=== PATIENT | female | born 1955 | race Caucasian/White ===

== ENCOUNTER 2017-07-30 13:08 | Outpatient (CLI) | payer OTHER ==
--- NOTE | 2017-08-03 09:16 | DEXA Report ---
DEXA SCAN: 07/30/2017 CLINICAL INDICATION: Postmenopausal. TECHNIQUE: Dual energy x-ray absorptiometry (DXA) was performed on a [employer] system. Regions measured are the AP spine, femoral neck, and, if needed, forearm. COMPARISON: None. In accordance with the International Society for Clinical Densitometry (ISCD) guidelines, data from previous exams may be reanalyzed using current recommendations and techniques. This is done to allow a more accurate basis for comparison with the current study. FINDINGS The data for the lumbar spine is as follows: REGION BMD (g/cm/cm) T-SCORE Z-SCORE L1 0.779 -2.9 -1.7 L2 0.905 -2.5 -1.2 L3 1.001 -1.7 -0.4 L4 1.008 -1.6 -0.4 TOTAL 0.932 -2.1 -0.8 NOTE: All evaluable vertebrae are used for classification. The data for the hip is as follows: REGION BMD (g/cm/cm) T-SCORE Z-SCORE Neck 0.726 -2.2 -1.0 TOTAL 0.795 -1.7 -0.7 NOTE: The femoral neck or total proximal femur, whichever is lowest, is used for classification. IMPRESSION THE WHO CLASSIFICATION BASED ON THE INTERNATIONAL REFERENCE STANDARD IS OSTEOPENIA. THE FRACTURE RISK IS INCREASED. RECOMMENDATION: Patients with diagnosis of osteoporosis or osteopenia should have regular bone mineral density assessment. For those eligible for Medicare, routine testing is allowed once every 2 years. Testing frequency can be increased for patients who have rapidly progressing disease or for those who are receiving medical therapy to restore bone mass. COMMENT World Health Organization (WHO) definitions for osteoporosis and osteopenia: NORMAL BMD: T-score at 1.0 or higher, fracture risk is low. OSTEOPENIA BMD: T-score between 1.0 and -2.5, fracture risk is increased. OSTEOPOROSIS BMD: T-score at 2.5 or lower, fracture risk high. National Osteoporosis Foundation recommends: 1. Obtain adequate dietary calcium (at least 1200 mg per day) and vitamin D (400 -800 international units per day). 2. Participate, as appropriate, in regular weightbearing and muscle- strengthening exercise. 3. Avoid tobacco use and reduce alcohol and caffeine intake. 4. For more detailed information see the website at www.NOF.org. TD: 07/30/2017 15:08 CHRISTIANO
== END 2017-07-30 13:09 | disposition home or self-care (01) ==
LOC: DI 13:08
PROVIDERS: ATTEND Specialist
DX: Z13.820 Encounter for screening for osteoporosis (principal); M85.89 Other specified disorders of bone density and structure, multiple sites; Z78.0 Asymptomatic menopausal state
CPT/HCPCS: 77080

== ENCOUNTER 2017-09-09 09:30 | Outpatient (CLI) | payer OTHER ==
--- NOTE | 2017-09-09 12:45 | XRAY Report ---
COMPLETE CERVICAL SPINE: 09/09/2017 CLINICAL INDICATION: Pain. FINDINGS: AP, lateral neutral, lateral flexion, lateral extension, oblique, odontoid views of the cervical spine were obtained. There is mild degenerative disk and facet disease, with disk space narrowing worst at C5-6. Mild bilateral osseous neural foraminal narrowing is seen at this level. There is no evidence of fracture or subluxation. No abnormal motion is appreciated on flexion or extension to suggest ligamentous laxity. IMPRESSION: MILD DEGENERATIVE CHANGES. NO EVIDENCE OF FRACTURE OR DISLOCATION. TD: 09/09/2017 12:44
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
== END 2017-09-09 09:31 | disposition home or self-care (01) ==
LOC: DI 09:30
PROVIDERS: ATTEND Chiropractor
DX: M50.30 Other cervical disc degeneration, unspecified cervical region (principal); M47.892 Other spondylosis, cervical region; M51.36 Other intervertebral disc degeneration, lumbar region; M47.896 Other spondylosis, lumbar region
CPT/HCPCS: 72050; 72100